=== PATIENT | female | born 2000 | race Caucasian/White ===

== ENCOUNTER 2024-07-25 21:09 | Emergency (ER) | payer BC, OTHER, SELFPAY ==
--- NOTE | 2024-07-25 21:15 | CRLHL7_ITS ---
For Patients: As a result of the Century Cures Act, medical imaging exams and procedure reports are released immediately into your electronic medical record. You may view this report before your referring provider. If you have questions, please contact your health care provider. Indication: Sports-related injury today. Technique: Right ankle 3 views. Comparison: None. Findings: Acute, mildly displaced distal fibular fracture at the level of the ankle mortise joint (Stokes B). Associated widening of the distal tibia fibula syndesmosis and the medial clear space of the ankle mortise joint. Subtle calcification within the medial clear space likely represents an avulsion fracture. The posterior malleolus is intact. Probable ankle joint effusion. Soft tissue swelling about ankle. No underlying aggressive osseous lesion. Impression: 1. Acute, mildly displaced distal fibular fracture at the level of the ankle mortise joint (Stokes B) with evidence of associated of distal tibia and fibula syndesmotic injury. 2. Tiny calcifications, likely pertaining to an avulsion fracture, within the widened medial clear space, compatible with deltoid ligament injury. Dictated by Anshu Wahl MD @ 07/25/2024 10:17:25 PM (Electronically Signed)
[2024-07-25 21:16] VITALS: BP 122/78; PULSE 82; RESP 18; TEMP 36.7; O2SAT 99; BMI 23.5
--- OUTSIDE RECORDS SUMMARY | 2024-07-25 22:09 | XMS_ITS | Clinical Summary ---
Author Organization [facility] Address [address] [place] [address]. 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 4 capsule 01/24/2024 Active Active Problems No known active problems Immunizations Name Administration Dates Next Due COVID-19 12+ (MODERNA) 03/16/2023 Influenza Vaccine (Flucelvax Quadrivalent) 03/16,02/26/2021 Influenza Vaccine >6 months,quad, PF 04/08/2022 TDAP (Adacel,Boostrix) 06/08/2023 Social History Tobacco Use Types Packs/Day Years Used Date Smoking Tobacco: Never Smokeless Tobacco: Never Tobacco Cessation:Counseling Given: Not Answered Comments No Sex and Gender Information Value Date Recorded Sex Assigned at Not on file Legal Sex Female 9:28 AM CDT Gender Identity Not on file Sexual Orientation Not on file Last Filed Vital Signs Vital Sign Reading Time Taken Comments Blood Pressure 133/76 01/24/2024 7:59 AM CDT Pulse 72 01/24/2024 7:59 AM CDT Temperature 36.8 C (98.2 F) 01/24/2024 7:59 AM CDT Respiratory Rate 16 01/24/2024 7:59 AM CDT Oxygen Saturation 99% 01/24/2024 7:59 AM CDT Inhaled Oxygen Concentration - - Weight 75.3 kg (166 lb) 01/24/2024 7:59 AM CDT Height 170.2 cm (5' 7) 01/24/2024 7:59 AM CDT Body Mass Index 26 01/24/2024 7:59 AM CDT Plan of Treatment Health Maintenance Due Date Last Done Comments ADVANCE CARE PLANNING 2001 ANNUAL REVIEW OF HM ORDERS 2001 CHLAMYDIA SCREENING 2001 YEARLY PREVENTIVE VISIT 2004 HIV SCREENING 2016 HPV IMMUNIZATION (1 - 3-dose series) 2016 MENINGITIS B IMMUNIZATION (1 of 2 - Standard) 2017 HEPATITIS C SCREENING 08/11/2019 HEPATITIS B IMMUNIZATION (1 of 3 - 19+ 3-dose series) 2020 PAP 2022 DTAP/TDAP/TD IMMUNIZATION (2 - Td or Tdap) 07/06/2023 06/08/2023 COVID-19 Vaccine (2 - 2023-2 5 season) 2024 03/16/2023 INFLUENZA VACCINE (#1) 2024 , 04/08/2022, 02/26/2021 PHQ-2 (once per calendar year) 2024 ZOSTER IMMUNIZATION (1 of 2) 08/11/2051 RSV VACCINE (1 - 1-dose 75+ series) 2076 MENINGITIS IMMUNIZATION Aged Out No l onger eligible based on patient's age to complete this topic Pneumococcal Vaccine: Pediatrics (0 to 5 Years) and At-Risk Patients (6 to 49 Years) Aged Out No longer eligible b ased on patient's age to complete this topic RSV MONOCLONAL ANTIBODY Aged Out No l onger eligible based on patient's age to complete this topic Insurance [employer] Care Teams Aircraft Engine Mechanic Relationship Specialty Start Date End Date No Ref-Primary, Physician PCP - General 01/14/24
--- NOTE | 2024-07-25 22:20 | ED_ITS ---
HPI - Extremity Injury (Lower) General Chief Complaint: Extremity Pain/Injury, Lower Stated Complaint: Right ankle injury during ultimate Time Seen by Provider: 07/25/24 21:14 History of Present Illness HPI Narrative: This 23-year-old female comes in with an injury to her right ankle. She was playing ultimate Frisbee on the team at [email or web address] and jumped and landed wrong on her right leg. She twisted her ankle and comes in with an injury there. He does not report any other injury. Related Data Home Medications ?Medication ?Instructions ?Recorded ?Confirmed No Known Home Medications 07/25/24 07/25/24 Allergies Allergy/AdvReac Type Severity Reaction Status Date / Time No Known Drug Allergies Allergy Verified 07/25/24 21:18 Review of Systems Status of ROS: Reports: 10 or more systems reviewed and unremarkable except as noted in History and below Narrative: Constitutional: No fevers, no weight gain or loss. Eyes: No discharge. No vision changes. HENT: No congestion, no sore throat, no ear pain. Cardiovascular: No chest pain, no palpitations. Respiratory: No shortness of breath, no wheezes, no cough. Gastrointestinal: No abdominal pain, no vomiting, no diarrhea. Genitourinary: No dysuria, no hematuria. Musculoskeletal: Right ankle injury. Skin: No rashes, no pruritis. Neurological: No dizziness, weakness, sensory change, speech change. Endo/Heme/Allergies: No bruising or bleeding. No polydipsia. Pysch: no suicidality, no anxiety, no insomnia. All other systems reviewed and are negative. [facility] History (Updated 07/25/24 @ 22:25 by Asif Sotelo MD) Depression ?F32.A - Depression, unspecified (ICD-10) Surgical History (Updated 07/25/24 @ 21:20 by Lawrence Vasquez RN) No significant past surgical history Social History Smoking Status: Never smoker Second hand tobacco smoke exposure: No How often do you have a drink containing alcohol: never AUDIT-C Alcohol total score: 0 Non-prescribed substance use: denies use Exam Narrative: Exam Narrative: Constitutional: Well-developed, well-nourished, no acute distress. HEENT: Normocephalic, atraumatic. Neck: Normal range of motion. Nontender. Supple. Heart: Intact distal pulses. Lungs: No chest discomfort. No wheezes, rhonchi, or rales. Abdomen: Nontender. Back: Normal range of motion. Extremities: Right ankle has significant swelling with tenderness when palpating over the medial and lateral malleoli. Skin: Intact. No rash. Warm. No erythema or pallor. Neurologic: No altered sensation. No weakness. Alert and oriented. Psychiatric: No suicidality. No anxiety or depression. No insomnia. Nursing notes and vitals signs are reviewed. Const: Vital Signs, click to edit/add: Vital Signs - 24 hr 07/25/24 21:16 Temperature 98.0 F Pulse Rate [Right Pulse Oximeter] 82 Respiratory Rate 18 Blood Pressure [Ri ght Upper Arm] 122/78 Pulse Oximetry 99 Oxygen Delivery Me thod Room Air Course Vital Signs Vital signs: Initial Vital Signs Temperature 98.0 F 07/25/24 21:16 Temperature Source Temporal Artery Scan 07/25/24 21:16 Pulse Rate 82 07/25/24 21:16 Respiratory Rate 18 07/25/24 21:16 Blood Pressure 122/78 07/25/24 21:16 Blood Pressure Mean 92 07/25/24 21:16 Blood Pressure Position Sitting 07/25/24 21:16 Pulse Oximetry 99 07/25/24 21:16 Oxygen Delivery Method Room Air 07/25/24 21:16 Vital Signs Temperature 98.0 F 07/25/24 21:16 Pulse Rate 82 07/25/24 21:16 Respiratory Rate 18 07/25/24 21:16 Blood Pressure 122/78 07/25/24 21:16 Pulse Oximetry 99 07/25/24 21:16 Oxygen Delivery Method Room Air 07/25/24 21:16 Temperature 98.0 F 07/25/24 21:16 Pulse Rate 82 07/25/24 21:16 Respiratory Rate 18 07/25/24 21:16 Blood Pressure 122/78 07/25/24 21:16 Pulse Oximetry 99 07/25/24 21:16 Oxygen Delivery Method Room Air 07/25/24 21:16 MDM - Extremity Injury (Lower) MDM Narrative Medical decision making narrative: This patient has an ankle fracture. The fibula has a comminuted fracture and the tibia shifted medially about half a cm from its proper position in the talar dome. By my viewing of the images I was suspicious of a tibia fracture posteriorly. Radiology report suggests a syndesmotic disruption causing the displacement of the tibia. I did contact Ortho surgeon on-call and the patient will be contacted in the morning for ongoing management. She was placed in a Allan Velazquez style splint and fitted for crutches. She received [employer] prescription for some tablets of Sturgeon. Imaging Data XR R Ankle: Radiologist's impression: 1. Acute, mildly displaced distal fibular fracture at the level of the ankle mortise joint (Stokes B) with evidence of associated of distal tibia and fibula syndesmotic injury. 2. Tiny calcifications, likely pertaining to an avulsion fracture, within the widened medial clear space, compatible with deltoid ligament injury. Discharge Plan Discharge Clinical Impression: Ankle fracture Patient Disposition: Home w/ Parent or Adult Condition: Stable Additional Instructions: Wear splint and use crutches for ambulating. Follow-up with orthopedic department. You should receive a phone call for that arrangement tomorrow. You may also call [phone] to connect with the orthopedic department. Prescriptions: No Action No Known Home Medications Follow Up/Referrals: Provider,Not a Local [Primary Care Provider] - Stand Alone Forms: [facility] Info Instructions
[2024-07-25 22:30] VITALS: BP 125/74; PULSE 74; RESP 18; TEMP 36.7; O2SAT 99
== END 2024-07-25 22:37 | disposition home or self-care (01) ==
PROVIDERS: Emergency Provider Emergency Medicine Emergency Medical Services
DX: S82.451A Displaced comminuted fracture of shaft of right fibula, initial encounter for closed fracture (principal); X50.1XXA Overexertion from prolonged static or awkward postures, initial encounter; Y93.74 Activity, frisbee
CPT/HCPCS: 29515; 73610; 99283; 99284

== ENCOUNTER 2024-08-04 07:57 | Day surgery (SDC) | payer OTHER, BC, SELFPAY ==
[2024-08-04] VITALS (15 sets, daily range): BP systolic 104–129; BP diastolic 63–90; PULSE 46–82; RESP 16; TEMP 36.1–36.6; O2SAT 95–100; BMI 23.5
[2024-08-04] MEDS: CEFAZOLIN 2 GM INJ IVP (07:13)
[2024-08-04 08:20] LABS: Ur HCG Qualitative* Negative (Negative)
[2024-08-04] MEDS: LACTATED RINGERS 1000 ML 1,000 ML 100 ML IV (08:39)
[2024-08-04] MEDS: SODIUM CHLORIDE 0.9 % (FLUSH) 10 ML SYRINGE IVF (08:39)
--- NOTE | 2024-08-04 08:42 | W.PM.H&PU ---
History & Physical Update History & Physical Update H&P Reviewed and patient assessed: No changes noted
[2024-08-04] MEDS: MIDAZOLAM HCL 1 MG/ML inj IVP (08:48)
[2024-08-04] MEDS: fentaNYL 100 MCG/2 ML inj IVP (08:48)
--- NOTE | 2024-08-04 08:52 | PM.ORPRC ---
Procedure Note Date of procedure: 08/04/24 Procedure: PREOPERATIVE DIAGNOSES: 1. Right ankle distal fibula fracture, closed, displaced 2. Possible right ankle syndesmosis disruption POSTOPERATIVE DIAGNOSES: 1. Right ankle distal fibula fracture, closed, displaced 2. Right ankle syndesmosis disruption NAME OF OPERATION: 1. Right ankle distal fibula fracture open reduction internal fixation 2. Right ankle syndesmosis repair with tightrope SURGEON: Lico Plata MD PLATFORM MATERIAL HANDLING SUPERVISOR: Latisha Poon P.A.-C.; An administrative assistant front desk was critical for this case to aid in patient positioning, leg manipulation, tissue retraction, closure, and splinting. ANESTHESIA: Spinal plus popliteal nerve block. EBL: 5 mL IMPLANTS: Arthrex distal fibular locking plate with 3.0 mm locking screws, 3.5 mm nonlocking screws, and a 3.0 mm lag screw. Arthrex Syndesmosis Tightrope. TOURNIQUET: 62 minutes at 250 mmHg INDICATIONS: The patient is a pleasant 23-year-old female who sustained a right ankle injury in the recent past with difficulty bearing weight. Workup included x-rays, which revealed a displaced distal fibula fracture with possible syndesmosis injury. Given the displacement of this fracture, surgery was recommended to improve alignment and allow for healing in a more anatomic position. Prior to surgery, the risks and benefits of the procedure were discussed with the patient, all questions were answered, and informed consent was obtained. FINDINGS: Closed, displaced, distal fibula fracture fracture. Unstable syndesmosis. PROCEDURE: Patient seen preoperatively and operative site was marked. A popliteal nerve block was performed by anesthesia staff. The patient was then brought to the operating room and spinal anesthesia was administered. Patient was then placed into the supine position on the OR table. The operative extremity was prepped and draped in the usual sterile fashion. 1 g IV Ancef was administered preoperatively for prophylaxis. A surgical time-out was performed confirming patient identity, surgical site, and surgical procedure. The operative extremity was elevated and exsanguinated, and the tourniquet inflated to 250 mmHg. A longitudinal incision was made overlying the posterior border of the distal fibula. Sharp incision was carried through skin and subcutaneous tissues with care taken to protect any crossing neurologic structures. The fracture was identified and cleared of interposed periosteum and fracture hematoma. Surgical site was thoroughly irrigated normal saline. Fracture was reduced and temporally held with a reduction clamp. Fluoroscopic imaging confirmed anatomic reduction of the distal fibula fracture. A 3.0 mm cortical screw was then placed perpendicular to the fracture in a lag fashion, and reduction clamp was removed. An Arthrex distal fibular locking plate was then selected and temporarily fixed to the distal fibula using BB tacks. Fluoroscopic imaging confirmed plate placement. Plate was then fixed proximally with a 3.5 mm nonlocking screws and distally with 3.0 mm locking screws. Fluoroscopic imaging confirmed anatomic reduction of the fracture and satisfactory placement of the plate and screws. External rotation stress was then placed on the ankle and syndesmosis and medial clear space for noted to widen confirming syndesmosis disruption. Decision was subsequently made to proceed with syndesmosis repair using an Arthrex syndesmosis tightrope. Guide pin for the tight rope was then drilled through 1 of the holes in the plate proximal to the tibiotalar joint under fluoroscopic guidance. This was then overdrilled with the correct drill bicortically through the fibula and tibia.. Syndesmosis tight rope was then inserted, and the button was flipped on the medial cortex of the distal tibia. While holding the ankle in 90? of flexion, the tight rope was tensioned securing the lateral button to the plate. After the tight rope was tensioned, external rotation stress was again applied to the ankle, and fluoroscopic images confirmed reduction of the syndesmosis and no widening of the syndesmosis or medial clear space. Remnant sutures were subsequently cut and removed. At this stage, the wound was thoroughly irrigated normal saline. Deep subcutaneous tissues were closed over the plate with 0 Vicryl [id number] interrupted sutures. The tourniquet was deflated and hemostasis was achieved with electrocautery. Wound was again irrigated normal saline. Subcutaneous tissues were closed with 3-0 Vicryl inverted interrupted subcutaneous stitches followed by a running 2-0 Stratafix subcuticular stitch and Dermabond. Sterile dressings and a well-padded short-leg splint were applied. The patient was awoken from anesthesia and transferred to the PACU in stable condition. PLAN: 1. Ice and elevation of operative extremity for pain and swelling. 2. Tylenol and oxycodone as needed for pain. 3. Toe-touch weight-bearing operative extremity. 4. Keep splint clean and dry. 5. Follow up in Orthopedic Clinic in 1 week for wound check and splint removal. 6. Will initiate formal physical therapy in approximately 2 weeks per the syndesmosis repair with tightrope protocol.
--- NOTE | 2024-08-04 08:59 | SUR.PREOP ---
TIME?OUT:?0848 PT/RN/MDA?VERIFICATION?OF?SURGICAL?SITE,?PROCEDURE,?AND?CONSENT OBTAINED?PRIOR?TO?INVASIVE?PROCEDURE.
--- NOTE | 2024-08-04 09:08 | W.PM.NB ---
Nerve Block Nerve Block Time Seen by Provider: 08:52 Date Seen: 08/04/24 Type of block requested by surgeon for post-operative analgesia: popliteal Side: right Time out performed: Yes Verification of patient name: Yes Verification of date of : Yes Site marking: site marked Name of person performing procedure: Anil Continuous monitoring Was continuous monitoring of O2 sat, B/P, traffic monitor specialist, recorded every 15 minutes?: Yes Procedure Checklist: sterile prep, needles and gloves Ultrasound guided. Images saved: Yes Medications given in 5ml increments after negative aspiration: Marcaine %: 0.25 mL: 20 Needle gauge: 20 Patient tolerated procedure well: Yes Additional comments: Needle noted adjacent to nerve Block Charges Block Charge (with Pro Fee): Sciatic Nerve Use of Ultrasound Machine for Block: Yes- US Guidance/pain block
--- NOTE | 2024-08-04 11:04 | W.ANESCHARGE ---
Anesthesia Charges Start Date/Time Anesthesia Start Date: 08/04/24 Anesthesia Start Time: 08:56 Stop Date/Time Anesthesia Stop Date: 08/04/24 Anesthesia Stop Time: 11:03 Coding CPT Codes CPT Codes: ANESTH LOWER LEG BONE SURG - 34158 ([id number]) P1 - NORMAL HEALTHY PATIENT, QK - SMALL STOCK FACER 2-4 CNCRNT ANES PROC, QX - JEWEL STAKER SVA[place] W/ MED DIRECTION
--- NOTE | 2024-08-04 11:06 | W.ANESCHARGE ---
Anesthesia Charges Start Date/Time Anesthesia Start Date: 08/04/24 Anesthesia Start Time: 08:56 Stop Date/Time Anesthesia Stop Date: 08/04/24 Anesthesia Stop Time: 11:03 Coding CPT Codes CPT Codes: ANESTH LOWER LEG BONE SURG - 94923 ([id number]) QK - DEVELOPMENT TECHNICAL LEAD 2-4 CNCRNT ANES PROC, QX - AMUSEMENT EQUIPMENT OPERATOR SVC W/ MD MED DIRECTION, P1 - NORMAL HEALTHY PATIENT
[2024-08-04] MEDS: OxyCODONE/APAP 5-325 TABLET PO (12:14)
== END 2024-08-04 13:15 | disposition home or self-care (01) ==
PROVIDERS: Anesthesiology; Visit Provider Orthopaedic Surgery
PROC: (CPT 27829; principal; 2024-08-04 09:00)
DX: S82.61XA Displaced fracture of lateral malleolus of right fibula, initial encounter for closed fracture (principal); S93.431A Sprain of tibiofibular ligament of right ankle, initial encounter; G89.18 Other acute postprocedural pain
CPT/HCPCS: 27829; 27792; 01480; 64445; 73600; 76942; 81025; A9270; C1713; J0665; J0690; J2250; J2405; J2704; J3010; J7120